=== PATIENT | female | born 1985 ===

== ENCOUNTER 2024-12-09 14:19 | Outpatient (AMB) | payer OTHER, SELFPAY ==
--- NOTE | 2024-12-09 14:21 | AMB.OBINITIA ---
Vital Signs 12/09/24 14:32 Height 1.63 m Height Method Stated Weight 94.574 kg Weight Measurement Method Standing Scale BMI 35.8 BP 143/85 H Blood Pressure Source Automatic Cuff Blood Pressure Location Left Upper Arm Position Sitting Respiration 16 Pulse 98 Pulse Source Monitor Temp 98.2 F Temp Source Oral Pulse Oximetry (%) 99 Oxygen Delivery Method Room Air Allergies/Home Meds Allergies & Medications Allergies No Known Allergies Allergy (Verified 12/09/24 14:34) Medication Reconciliation ergocalciferol (vitamin D2) 1,250 mcg (50,000 unit) capsule (Vitamin D2) 1,250 mcg PO QWEEK 12/09/24 [History Confirmed 12/09/24] labetalol 100 mg tablet 100 mg PO BID 12/09/24 [History Confirmed 12/09/24] metformin 1,000 mg tablet 1,000 mg PO BID 12/09/24 [History Confirmed 12/09/24] Intake Visit Data Collection New Patient or Established: New Patient not seen in past 3 years at [facility] (considered New) Reason for Visit:: New OB visit Seen by Clinical Staff ONLY (RN/MA): No Wellness Consultant Required: No Do You Feel Safe at Home: Yes Authorities Contacted: N/A PCP or OBGYN visit in last 3 months: Yes Hx Now: Yes Are you currently on any form of Control: No Last menstrual period: 10/14/24 Pain Present Currently: No Pain Scale Used: Mckeon-Ayala/Numerical Pain scale:: 0 Smoking Status Smoking Status: Never smoker Questionnaires Covid-19 Vaccine Questionnaire Has patient been vacinated for Covid-19 Have you been vacinated for Covid-19: Yes PHQ-9 PHQ-2 Over the last 2 weeks, how often have you been bothered by any of the following problems? 1. Little interest or pleasure in doing things: not at all 2. Feeling down, depressed, or hopeless: not at all Total score: 0 PHQ-9 3. Trouble falling or staying asleep, or sleeping too much: Not at all 4. Feeling tired or having little energy: Not at all 5. Poor appetite or overeating: Not at all 6. Feeling bad about yourself - or that you are a failure or have let yourself or your family down: Not at all 7. Trouble concentrating on things, such as reading the newspaper or watching television: Not at all 8. Moving or speaking so slowly that other people could have noticed? - Or the opposite - being so fidgety or restless that you have been moving around a lot more than usual: not at all 9. Thoughts that you would be better off or of hurting yourself in some way: Not at all Total score: 0 If you checked off any problems, how difficult have these problems made it for you to do your work, take care of things at home, or get along with other people?: not difficult at all Source: Developed by Drs. Familia Carreno, Renee Hawley, Ron Sandoval and colleagues, with an educational leslie from [employer]. 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 Tobacco History Smoking Status: Never smoker Alcohol History Alcohol Intake: Never Domestic Abuse History Do You Feel Safe at Home: Yes Past Medical History Past Medical History Have you ever been diagnosed with any of the following: Neurological Problems Seizures: No Guillain-Victor Syndrome: No Dominique's Palsy: No Cardiology Problems Cardiac Arrhythmia: No Coronary Artery Disease: No Atherosclerotic Heart Disease: No Hypercholesterolemia: No Rheumatic Fever: No Hypertension: Yes (Patient was on lisinopril and was switched to labetalol 100 p.o. BID) Respiratory Problems Asthma: No Pulmonary Embolism: No Sleep Apnea: No Tobacco Use: No Stomache/Intestinal Problems Gall Bladder Disease: No Gastrointestinal Bleed: No Diverticulitis: No Irritable Bowel: No Genital/Urinary Problems Renal Disease: No Kidney Stones: No Reproductive Problems Breast Cancer: No Endometriosis: No Fibroids: No Genital Herpes: No Previous Pregnancies: Yes (History of 2 very early miscarriages at about 5 weeks with no D&Cs) Syphilis: No Musculoskeletal Problems Arthritis: No Rheumatoid Arthritis: No Scoliosis: No Fibromyalgia: No Endocrine Problems Diabetes Mellitus Type 2: Yes (Patient is on metformin at 1000 mg p.o. QD. Last HgBA1c was 7.2) Hyperthyroidism: No Hypothyroidism: No Systemic Lupus Erythematosus: No Blood Problems Anemia: No Psychologic Problems Depression: No Anxiety: No Attention Deficit Disorder: No Other Problems Hospitalization: No Autoimmune Disease: No Cosmetic Surgery: No Blood Transfusions: No Surgical History Appendectomy: No Bariatric Surgery: No Breast Surgery: No Cholecystectomy: No Coronary Artery Bypass Graft: No Pacemaker: No Additional Surgical History: Patient has had a infertility workup including HSG semen analysis and lab work in [place] in the past History of Present Illness HPI Narrative Patient is a pleasant 39-year-old -0-2-0 presents with her for a new OB. She states that she has had 2 very early miscarriages in the past at about 5 weeks. Patient never saw heartbeat. She was diagnosed with diabetes 2 years ago she also has high blood pressure. Her primary care switched her from lisinopril to labetalol as soon as her test was positive. Her LMP was 10/14/2024 making her approximately 8 weeks by dates today patient states they have never been able to achieve for long period besides the early miscarriages. They have even had a an infertility workup in the past. Patient was on Ozempic and lost 10 pounds. Today she reached she is reporting no bleeding or cramping. She is very anxious about another miscarriage. OB Initial Visit Menstrual History Menstrual reliability: unknown Flow: normal Menstrual regularity: irregular Monthly: No Age at menarche: 17 On control pills at conception: No Date of positive home test: 11/24/24 Associated symptoms (LMP): Reports nausea OB History : 3 Para: 0 Hx Total # of Abortions (Spontaneous & Elective): 2 (early SABs at 5 weeks) Infection History & Risk Evaluation History of STDs: none HIV risk evaluation: low risk Hepatitis B risk evaluation: low risk Patient or partner has history of Genital Herpes: No Genetic Screening & History Genetic Screening/Teratology Counseling - Includes patient, baby's father, or anyone in either family with: 1. Patient's age 35 years or older as of estimated date of delivery: Yes 2. Thalassemia (Bulgarian, Mohawk, Mediterranean, or Background); MCV less than 80: No 3. Neural Tube Defect (Meningomyelocele, Spina Bifida, or Anencephaly): No 4. Congenital Heart Defect: No 5. Down Syndrome: Yes 6. Benito-Sachs (Ashkenazi Anglican, Cajun, [place]): No 7. Kev Disease (Ashkenazi Anglican): No 8. Familial Dysautonomia (Ashkenazi Anglican): No 9. Sickle Cell Disease or Trait (): No 10. Hemophilia or other blood disorders: No 11. Muscular Dystrophy: No 12. Cystic Fibrosis: No 13. [place]'s Chorea: No 14. Mental Retardation/Autism: Yes 15. Other inherited genetic or chromosomal disorder: No 16. Maternal Metabolic Disorder (EG,TYPE 1 Diabetes, PKU): No 17. Patient or baby's father had a child with defects not listed above: No 18. Recurrent loss or a stillbirth: No 19. Medications (including supplements, vitamins, herbs or otc drugs)/illicit/recreational drugs/alcohol since last menstrual period: Yes Comments/Counseling: Patient and her both desire NIPT testing. They desire referral to a maternal- medicine specialist and a level 2 ultrasound. Infection History 1. Live with someone with TB or exposed to TB: No 2. Rash or viral illness since last menstrual period: No 3. Hepatitis B,C: No Other (see comments) Source: [employer] OB Flowsheet OB Flowsheet Initial Weight: Not Recorded Date <del>?</del> EGA Weight Edema CTX Effacement BP Fundal ht Pres Dilation Effacement Station Visit Note Alb Glu FHR Mov 12/09/24 <del>?</del> 8w 0d 94.574 kg 143/85 110 Review of Systems Constitutional Constitutional: Reports system reviewed and no additional complaints, except as documented Comments: No heavy bleeding no abnormal discharge no pelvic pain. Gastrointestinal Gastrointestinal: Reports nausea Exam General Limitations: no limitations General Appearance: alert, cooperative, well developed, well groomed and anxious Head Head exam: atraumatic, normocephalic and normal inspection Neck Neck exam: Present normal inspection, full ROM and trachea midline Chest Chest inspection: Present normal inspection and symmetric chest wall rise Resp Respiratory exam: Present normal lung sounds bilaterally Card Cardiovascular exam: Present regular rate, normal rhythm and normal heart sounds Abdominal Abdominal exam: Present soft and normal bowel sounds Psych Psychiatric exam: Present normal affect and normal mood Skin Skin exam: Present warm, dry, intact and normal color Results Objective Imaging: Bedside US done +FHTS sent down for official US Assessment & Plan Diagnosis / Problem List (1) Chronic benign essential hypertension in first trimester: Status: Acute Plan: Salt diet. Keep an eye on blood pressure at home. Moderate exercise. Continue labetalol 100 twice daily. Start baby aspirin 81 mg p.o. daily (2) Pre-existing urs-goavuxf-xgrssnsvo diabetes mellitus during in first trimester: Status: Acute Plan: Stay on metformin. Check hemoglobin A1c. Send diabetic gestational counseling now (3) : Status: Acute Qualifiers: Weeks of gestation: less than 8 weeks Qualified Code(s): Z3A.01 - Less than 8 weeks gestation of (4) AMA (advanced maternal age) primigravida 35+: Status: Acute Qualifiers: Trimester: first trimester Qualified Code(s): O09.511 - Supervision of elderly primigravida, first trimester Plan: Order labs, order hemoglobin A1c, sent to [facility] in [place] for counseling on AMA and for level 2 ultrasound. Additional Plan Follow Up: 2 Weeks Office Procedures OB Clinic LOC & Office Proc's Nursing/Assessment Patient Status: Initial/New Patient OB Clinic Nursing Assessment: BP Monitoring, Medication Reconciliation, Update PMH in EMR and Vital Signs OB Clinic Coordination of Care: Consent,records obtained, informed consent, Education Simp Pt/Fam, Lab and Imaging orders and Staff clarify orders New Patient Charge New Patient Point Assignment: [id number] New Patient Point Charge: MECHANICAL SERVICE SPECIALIST Level 5 ([id number]) OB Ultrasound OB Ultrasound Ultrasound technique:: transabdominal Gestational sac assessment: Presence, location, size, shape:: Only transabdominal ultrasound obtained. Due to nonfunctioning transvaginal probe. heart tones seen. Patient sent for official ultrasound stat
[2024-12-09 14:32] VITALS: BP 143/85; PULSE 98; RESP 16; TEMP 36.8; O2SAT 99; BMI 35.8
== END 2024-12-09 15:40 | disposition home or self-care (01) ==
LOC: HODSOBC 14:19
PROVIDERS: Supervising Provider Obstetrics & Gynecology; Visit Provider Obstetrics & Gynecology
DX: O09.521 Supervision of elderly multigravida, first trimester (principal); Z3A.08 8 weeks gestation of pregnancy; O09.891 Supervision of other high risk pregnancies, first trimester; O10.011 Pre-existing essential hypertension complicating pregnancy, first trimester; O24.111 Pre-existing type 2 diabetes mellitus, in pregnancy, first trimester; Z87.59 Personal history of other complications of pregnancy, childbirth and the puerperium; Z79.84 Long term (current) use of oral hypoglycemic drugs; Z79.899 Other long term (current) drug therapy
CPT/HCPCS: 99205; G0463

== ENCOUNTER → 2024-12-09 | Outpatient (CLI) | payer BC, SELFPAY ==
--- NOTE | 2024-12-09 15:51 | XR_ITS ---
Examination: Complete OB ultrasound, less than 14 weeks, transabdominal Date and time of exam: December 09, 2024 1645 hours INDICATIONS: Diagnosis high risk Technique: Obstetrical ultrasound images less than 14 weeks performed via transabdominal imaging Findings: A normal shaped single intrauterine gestation is present in the uterus. CRL 0.3 cm corresponds to 5 week 6 day gestational age Cardiac motion 124 BPM Ultrasonographic survey of visible and placental structures unremarkable. Amniotic fluid volume appears appropriate for this estimated gestational age. Right ovary 3.5 cm arterial flow Left ovary 4.6 cm arterial flow IMPRESSION: Viable intrauterine gestation 5 weeks 6 days.
== END | disposition home or self-care (01) ==
PROVIDERS: PCP Family Medicine; Referring Provider Obstetrics & Gynecology; Visit Provider Obstetrics & Gynecology
DX: O09.91 Supervision of high risk pregnancy, unspecified, first trimester (principal); Z3A.01 Less than 8 weeks gestation of pregnancy
CPT/HCPCS: 76801

== ENCOUNTER → 2024-12-21 | Outpatient (CLI) | payer BC, SELFPAY ==
[2024-12-21 17:37] LABS: Basophils % (Auto) 0 % (0-2.5); Eosinophils # (Auto) 0.1 Thou/mm3 (0.0-0.5); Eosinophils % (Auto) 1 % (0-10); Hematocrit 39.8 % (36.0-46.0); Hemoglobin 13.4 g/dL (12.0-16.0); Immature Granulocytes % (Auto) 0 % (0-0); Immature Granulocytes Auto 0.01 Thou/mm3 (0.00-0.00); Lymphocytes # (Auto) 3.6 Thou/mm3 (1.0-4.8); Lymphocytes % (Auto) 53 % (10-50); Mean Corpuscular HGB Conc 33.7 g/dl (31.0-37.0); Mean Corpuscular Hemoglobin 26.9 pg (25.0-35.0); Mean Corpuscular Volume 80 fL (80-100); Monocytes # (Auto) 0.5 Thou/mm3 (0.0-0.8); Monocytes % (Auto) 7 % (0-12); Neutrophils # (Auto) 2.6 Thou/mm3 (1.8-7.7); Neutrophils % (Auto) 39 % (37-80); Nucleated Red Blood Cell % 0 /100 WBC (0); Platelet Count 351 Thou/mm3 (140-440); RDW Standard Deviation 41.7 fL (36.4-46.3); Red Blood Count 4.98 Miln/mm3 (4.00-5.20); White Blood Count 6.7 Thou/mm3 (3.6-11.0)
[2024-12-21 17:46] LABS: Glucose Estimated Average 154 mg/dL (80-131)
[2024-12-21 18:02] LABS: Hepatitis B Surface Antigen Non Reactive (Non React); Rubella, IgG Antibody Reactive (Immune)
[2024-12-22 04:00] LABS: HIV (1&2) Antibody Rapid Non-Reactive
== END | disposition home or self-care (01) ==
LOC: COPL 16:24
PROVIDERS: PCP Obstetrics & Gynecology; Referring Provider Obstetrics & Gynecology; Visit Provider Obstetrics & Gynecology
DX: Z34.90 Encounter for supervision of normal pregnancy, unspecified, unspecified trimester (principal)
CPT/HCPCS: 36415; 83036; 85025; 86703; 86762; 86850; 86900; 86901; 87340

== ENCOUNTER → 2025-01-02 | Outpatient (CLI) | payer BC, SELFPAY ==
--- NOTE | 2025-01-02 12:30 | XR_ITS ---
Examination: Complete OB ultrasound, less than 14 weeks, transabdominal Date and time of exam: January 02, 2025 1230 hours INDICATIONS: Encounter for supervision of normal , diagnosis advanced maternal age Technique: Obstetrical ultrasound images less than 14 weeks performed via transabdominal imaging Findings: A normal shaped single intrauterine gestation is present in the uterus. CRL 1.9 cm corresponds to 8 weeks 3 days gestational age Cardiac motion 133 BPM Ultrasonographic survey of visible and placental structures unremarkable. Amniotic fluid volume appears appropriate for this estimated gestational age. Right ovary 3.1 cm arterial flow Left ovary 4.0 cm arterial flow 16mm cyst IMPRESSION: Viable intrauterine gestation 8 weeks 3 days.
== END | disposition home or self-care (01) ==
LOC: CDIM 12:12
PROVIDERS: Referring Provider Internal Medicine Infectious Disease; Visit Provider Internal Medicine Infectious Disease
DX: O09.519 Supervision of elderly primigravida, unspecified trimester (principal); Z3A.08 8 weeks gestation of pregnancy
CPT/HCPCS: 76801

== ENCOUNTER 2025-01-10 08:39 | Emergency (ER) | payer BC, SELFPAY ==
[2025-01-10 08:40] VITALS: BMI 35.5
[2025-01-10 08:47] VITALS: BP 152/105; PULSE 104; RESP 18; TEMP 36.8; O2SAT 99; BMI 35.5
--- NOTE | 2025-01-10 08:57 | XR_ITS ---
Examination: Complete OB ultrasound, less than 14 weeks, transabdominal Date and time of exam: January 10, 2025 0956 hours INDICATIONS: Vaginal bleeding and pelvic cramping beginning 3 days ago Technique: Obstetrical ultrasound images less than 14 weeks performed via transabdominal imaging Findings: Uterus 12.8 cm pole 1.8 cm corresponds to 8 weeks 3 days gestational age No movement no cardiac activity Right ovary 3.2 x 5.1 cm arterial flow Left ovary 4.1 x 3.3 cm arterial flow 18 mm follicular cyst IMPRESSION: demise
[2025-01-10 09:53] LABS: Basophils # (Auto) 0.1 Thou/mm3 (0.0-0.2); Basophils % (Auto) 1 % (0-2.5); Eosinophils # (Auto) 0.1 Thou/mm3 (0.0-0.5); Eosinophils % (Auto) 2 % (0-10); Hematocrit 41.5 % (36.0-46.0); Hemoglobin 13.8 g/dL (12.0-16.0); Immature Granulocytes % (Auto) 0 % (0-0); Immature Granulocytes Auto 0.01 Thou/mm3 (0.00-0.00); Lymphocytes # (Auto) 2.7 Thou/mm3 (1.0-4.8); Lymphocytes % (Auto) 32 % (10-50); Mean Corpuscular HGB Conc 33.3 g/dl (31.0-37.0); Mean Corpuscular Hemoglobin 26.9 pg (25.0-35.0); Mean Corpuscular Volume 81 fL (80-100); Monocytes # (Auto) 0.6 Thou/mm3 (0.0-0.8); Monocytes % (Auto) 8 % (0-12); Neutrophils # (Auto) 4.9 Thou/mm3 (1.8-7.7); Neutrophils % (Auto) 58 % (37-80); Nucleated Red Blood Cell % 0 /100 WBC (0); Platelet Count 398 Thou/mm3 (140-440); Red Blood Count 5.13 Miln/mm3 (4.00-5.20); White Blood Count 8.4 Thou/mm3 (3.6-11.0)
[2025-01-10 10:33] LABS: Alanine Aminotransferase 27 U/L (10-49); Albumin, Serum 4.3 gm/dL (3.5-5.0); Albumin/Globulin Ratio 1.7 (1.2-2.2); Alkaline Phosphatase 75 U/L (46-116); Anion Gap 10 (7-16); Aspartate Amino Transferase 24 U/L (0-34); BUN/Creatinine Ratio 9 Ratio (12-20); Beta HCG,Quantitative 9692 mIU/mL (<5.0); Bilirubin,Total 0.3 mg/dL (0.3-1.2); Blood Urea Nitrogen 8 mg/dL (9-23); Calcium 9.3 mg/dL (8.3-10.6); Calcium (Corrected) 9.3 mg/dL (8.5-10.1); Carbon Dioxide 22.4 mMol/L (20.0-31.0); Chloride 102 mMol/L (98-107); Creatinine (Component) 0.9 mg/dL (0.6-1.3); Estimated Creatinine Clearance 92.3 mL/min (>60); Globulin 2.6 gm/dL (2.3-3.5); Glucose 193 mg/dL (74-106); Osmolality,Calculated 271 (275-295); Potassium 4.2 mMol/L (3.4-5.1); Sodium 134 mMol/L (136-145); Total Protein 6.9 gm/dL (5.7-8.2); eGFR > 60 See Note
--- NOTE | 2025-01-10 11:27 | EDNOTE_ITS ---
ED OB Contraction Preg RMI/HPI General Chief complaint: OB/Uterine Contractions Stated complaint: PREG 10WKS, SPOTTING SINCE THURSDAY, MILD CRAMPING Time Seen by Provider: 01/10/25 08:46 Arrival date/time: 01/10/25 08:39 39-year-old female medical history significant hypertension and diabetes presents to the emergency department today for complaints of vaginal bleeding and pelvic pain. Patient reports this is her third patient has had not had a live Limitations: no limitations Related Data Home Medications ?Medication ?Instructions ?Recorded ?Confirmed ergocalciferol (vitamin D2) 1,250 1,250 mcg PO QWEEK 0 12/09/24 12/16/24 mcg (50,000 unit) capsule (Vitamin D2) labetalol 100 mg tablet 100 mg PO BID 12/09/2412/16 metformin 1,000 mg tablet 1,000 mg PO BID 12/09/24 Allergies Allergy/AdvReac Type Severity Reaction Status Date / Time No Known Allergies Allergy Verified 01/10/25 08:42 Review of Systems Review of Systems Systems Reviewed: All systems reviewed, normal except as documented Constitutional Constitutional: Reports system reviewed and no additional complaints, except as documented, Denies fever(s) and Denies headache(s) Eyes Eyes: Reports system reviewed and no additional complaints, except as documented and Denies blurry vision ENT Ears, Nose, Mouth, and Throat: Reports system reviewed and no additional complaints, except as documented, Denies headache(s), Denies nasal congestion and Denies nasal discharge Cardiovascular Cardiovascular: Reports system reviewed and no additional complaints, except as documented, Denies chest pain and Denies dyspnea Respiratory Respiratory: Reports system reviewed and no additional complaints, except as documented, Denies chest congestion, Denies cough and Denies dyspnea Gastrointestinal Gastrointestinal: Reports system reviewed and no additional complaints, except as documented and Denies abdominal pain Genitourinary Genitourinary: Reports system reviewed and no additional complaints, except as documented, Reports abnormal vaginal bleeding and Reports pelvic pain Integumentary/Breasts Skin/Breast: Reports system reviewed and no additional complaints, except as documented and Denies rash Neurologic Neurologic: Reports system reviewed and no additional complaints, except as documented, Reports as per HPI and Denies headache(s) Past Medical History Past Medical History NEUROLOGIC: Negative Cerebrovascular Accident, Transient Ischemic Attacks (TIA), Dementia, Alzheimer's Disease, Parkinson's Disease, Brain Tumor, Meningitis, Seizures, Epilepsy, Multiple Sclerosis, Cerebral Palsy, Amyotrophic Lateral Sclerosis (ALS/Mary Jo Gehrig's), Guillain-[place] Syndrome, Spina Bifida, Paralysis, Peripheral Neuropathy, Dominique's Palsy, Subdural Hematoma, Migraine, Head Trauma, Spinal Cord Injury or Traumatic Brain Injury CARDIAC: Positive Hypertension (Patient was on lisinopril and was switched to labetalol 100 p.o. BID); Negative Myocardial Infarction, Cardiac Arrhythmia, Atrial Fibrillation, Angina, Heart Murmur, Coronary Artery Disease, Atherosclerotic Heart Disease, Peripheral Vascular Disease, Hypercholesterolemia, Aneurysm, Congestive Heart Failure, Congenital Heart Disease, Valvular Heart Disease, Rheumatic Fever, Cardiomyopathy, Edema, Pericarditis, Cellulitis, Deep Vein Thrombosis, Hypotension or Varicose Veins RESPIRATORY: Negative Chronic Obstructive Pulmonary Disease (COPD), Asthma, Pulmonary Embolism, Sleep Apnea or Tobacco Use GASTROINTESTINAL: Negative Liver Cancer, Hepatitis, Cirrhosis, Pancreatic Cancer, Gall Bladder Disease, Gastrointestinal Bleed, Diverticulitis or Irrita ble Bowel GENITOURINARY: Negative Renal Disease or Kidney Stones REPRODUCTIVE: Positive Previous Pregnancies (History of 2 very early miscarriages at about 5 weeks with no D&Cs); Negative Breast Cancer, Endometriosis, Fibroids, Genital Herpes or Syphilis MUSCULOSKELETAL: Negative Arthritis, Rheumatoid Arthritis, Scoliosis or Fibromyalgia ENT: Negative Cataracts, Glaucoma, Blind, Retinal Detachment, Macular Degeneration or Head Trauma ENDOCRINE: Positive Diabetes Mellitus Type 2 (Patient is on metformin at 1000 mg p.o. QD. Last HgBA1c was 7.2); Negative Diabetes Mellitus Type 1, Hypoglycemia, Zaki's Syndrome, [place]'s Disease, Hyperthyroidism, Hypothyroidism, Thyroid Cancer, Parathyroid Disease, Pituitary Disease or Systemic Lupus Erythematosus HEMATOLOGIC: Negative Anemia PSYCHO/SOCIAL: Negative Depression, Anxiety or Attention Deficit Disorder OTHER HISTORY: Negative Hospitalization, Autoimmune Disease, Cosmetic Surgery, Blood Transfusions or Breast Cancer Surgical History SURGICAL: Negative Coronary Artery Bypass Graft, Valve Replacement, Pacemaker, Carotid Endarterectomy, Thyroidectomy or Hysterectomy Social History SMOKING STATUS: Never smoker SECOND HAND EXPOSURE: No ED Exam General Limitations: Present no limitations General appearance: Present alert and in no apparent distress Head Head exam: Present atraumatic, normocephalic and normal inspection Eye Eye exam: Present normal appearance, PERRL and EOMI; Absent conjunctival injection ENT ENT exam: Present normal exam, normal oropharynx and mucous membranes moist Neck Neck exam: Present normal inspection, full ROM and trachea midline Chest Chest inspection: Present normal inspection and symmetric chest wall rise Respiratory Respiratory exam: Present normal lung sounds bilaterally; Absent respiratory distress Cardiovascular Cardiovascular exam: Present regular rate, normal rhythm and normal heart sounds Abdominal Exam Abdominal exam: Present soft and normal bowel sounds; Absent distention, tenderness, guarding, rebound or rigidity Extremities Exam Extremities exam: Present normal inspection and full ROM Back Exam Back exam: Present normal inspection and full ROM Neurological Exam Neurological exam: Present alert, oriented X3 and CN II-XII intact Psychiatric Psychiatric exam: Present normal affect and normal mood Skin Skin exam: Present warm, dry, intact and normal color Course Quality Measures none Orders Category Date Time Status US OB <= 14 weeks fetus Stat Exams 01/10/25 08:57 Completed ABO/RH Type Stat Lab 01/10/25 09:36 Completed Beta HCG,Quantitative Stat Lab 01/10/25 09:36 Completed CBC Stat Lab 01/10/25 09:36 Completed Comprehensive Metabolic Panel Stat Lab 01/10/25 09:36 Completed Vital Signs Vital signs: Vital Signs Temperature 98.3 F 01/10/25 08:47 Pulse Rate 104 H 01/10/25 08:47 Respiratory Rate 18 01/10/25 08:47 Blood Pressure 152/105 H 01/10/25 08:47 Pulse Oximetry (%) 99 01/10/25 08:47 Oxygen Delivery Method Room Air 01/10/25 08:47 o2 sat 99% r/a wnl OB/Uterine Contractions MDM Narrative MDM Narrative:: 39-year-old female medical history significant hypertension and diabetes presents to the emergency department today for complaints of vaginal bleeding and pelvic pain. Patient reports this is her third patient has had not had a live On exam patient well-appearing patient does not appear ill or toxic patient is hemodynamically stable Consultation: I spoke with Dr. Collado who felt patient can follow-up tomorrow with Dr Dee patient's [employer] Patient reports that she would like to follow-up with her [employer] tomorrow As patient hemodynamically stable does not appear ill or toxic patient be discharged home at this time Patient has strict instructions to follow-up with her [employer] tomorrow for worsening symptoms return immediately Patient data External records reviewed:: [facility] previous records Clinical information provided by:: patient Social determinants that could affect healthcare access:: none Patient has the following chronic illnesses:: None How is presenting disease/condition affected by chronic disease/condition?: no chronic disease Evaluation data The following diagnostics were reviewed and interpreted by me:: lab results and radiology exam(s) Lab and/or radiology exams considered but not ordered:: Labs radiology obtain Interpretation Summary: Reviewed by mom Medications / Prescriptions Medications or Prescriptions considered but not ordered:: Given no meds Medication administrations:: Given no meds Consultations Consultation(s) initiated? (list below): Yes Consultation #1 (Physician, Specialty, Details): Dr collado Diagnosis OB Contractions Differential Diagnosis: other (Missed , threatened ) Most likely diagnosis given after review of the tests above:: Missed Admission Indicated Admission indicated?: not indicated Explain why admission is indicated or not indicated:: No criteria Admission Request Was there a request for admission?: No Disposition Plan Disposition Plan: Discharge Discharge Attestation Discharge Attestation: The patient and all family members were given an opportunity to ask questions and understood the discharge instructions. Discharge instructions specifically effects, indications for sooner follow up or return to the emergency department, and the expected course of current diagnosis. Patient condition: Stable Discharge Plan Plan Patient Disposition: HOME (Self Care) Disposition Comment: Stable Prescriptions/Referrals Prescriptions/Med Rec: No Action metformin 1,000 mg tablet 1,000 mg PO BID labetalol 100 mg tablet 100 mg PO BID ergocalciferol (vitamin D2) [Vitamin D2] 1,250 mcg (50,000 unit) capsule 1,250 mcg PO QWEEK Referrals: [facility] (OB Clinic)Lisa MD [Physician] - 01/11/25 Monique Herrera MD [Primary Care Provider] - In 1 week Problem List Clinical Impression: , missed Patient/Caregiver Discharge Instructions Education Materials: ED Missed Miscarriage Additional Instructions: Please follow-up with your [employer] tomorrow for worsening symptoms or concerns return to the ER immediately Print Language: Burmese Stand Alone Forms: Devi Award Info., Work/School Release, Patient Portal Info Letter PA/MARJ Supervising Physician PA/MARJ Supervising Physician: Dr Rm
== END 2025-01-10 11:37 | disposition home or self-care (01) ==
PROVIDERS: Nurse Practitioner Primary Care; Emergency Provider Emergency Medicine; PCP Obstetrics & Gynecology
DX: O02.1 Missed abortion (principal); I10 Essential (primary) hypertension; E11.9 Type 2 diabetes mellitus without complications
CPT/HCPCS: 36415; 76801; 80053; 84702; 85025; 86900; 86901; 99284

== ENCOUNTER 2025-01-11 08:29 | Outpatient (AMB) | payer BC, SELFPAY ==
[2025-01-11 08:34] VITALS: BP 132/87; PULSE 92; RESP 16; TEMP 35.7; O2SAT 98; BMI 35.2
--- NOTE | 2025-01-11 08:34 | AMB.GYNCLNOT ---
Vital Signs 01/11/25 08:34 Height 1.63 m Height Method Stated Weight 93.667 kg Weight Measurement Method Standing Scale BMI 35.2 BP 132/87 H Blood Pressure Source Automatic Cuff Blood Pressure Location Left Upper Arm Position Sitting Respiration 16 Pulse 92 Pulse Source Monitor Temp 96.3 F L Temp Source Oral Pulse Oximetry (%) 98 Oxygen Delivery Method Room Air Allergies/Home Meds Allergies & Medications Allergies No Known Allergies Allergy (Verified 01/11/25 08:35) Medication Reconciliation ergocalciferol (vitamin D2) 1,250 mcg (50,000 unit) capsule (Vitamin D2) 1,250 mcg PO QWEEK 12/09/24 [History Confirmed 01/11/25] labetalol 100 mg tablet 100 mg PO BID 12/09/24 [History Confirmed 01/11/25] metformin 1,000 mg tablet 1,000 mg PO BID 12/09/24 [History Confirmed 01/11/25] Intake Visit Data Collection New Patient or Established: Established Patient (seen at [facility] within 3 years) Reason for Visit:: Follow-up on miscarriage Seen by Clinical Staff ONLY (RN/MA): No [place] Rafting Guide Required: No Do You Feel Safe at Home: Yes Authorities Contacted: N/A PCP or OBGYN visit in last 3 months: Yes Date of Last PCP or OBGYN visit: 01/02/25 Hx Now: No Are you currently on any form of Control: No Pain Present Currently: No Pain Scale Used: Mckeon-Ayala/Numerical Pain scale:: 0 Smoking Status Smoking Status: Never smoker 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 1. Little interest or pleasure in doing things: not at all 2. Feeling down, depressed, or hopeless: not at all Total score: 0 PHQ-9 3. Trouble falling or staying asleep, or sleeping too much: Not at all 4. Feeling tired or having little energy: Not at all 5. Poor appetite or overeating: Not at all 6. Feeling bad about yourself - or that you are a failure or have let yourself or your family down: Not at all 7. Trouble concentrating on things, such as reading the newspaper or watching television: Not at all 8. Moving or speaking so slowly that other people could have noticed? - Or the opposite - being so fidgety or restless that you have been moving around a lot more than usual: not at all 9. Thoughts that you would be better off or of hurting yourself in some way: Not at all Total score: 0 If you checked off any problems, how difficult have these problems made it for you to do your work, take care of things at home, or get along with other people?: not difficult at all Source: Developed by Drs. Familia Carreno, Renee Hawley, Ron Sandoval and colleagues, with an educational leslie from [employer]. 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 Tobacco History Smoking Status: Never smoker Second Hand Smoke Exposure: No Alcohol History Alcohol Intake: Never Substance Use History Substance Use: none Domestic Abuse History Do You Feel Safe at Home: Yes Past Medical History Past Medical History Have you ever been diagnosed with any of the following: Neurological Problems Cerebrovascular Accident (CVA): No Transient Ischemic Attacks (TIA): No Dementia: No Alzheimer's Disease: No Parkinson's Disease: No Brain Tumor: No Meningitis: No Seizures: No Epilepsy: No Multiple Sclerosis: No Cerebral Palsy: No Amyotrophic Lateral Sclerosis (ALS/Mary Jo Gehrig's): No Guillain-Fisk Syndrome: No Spina Bifida: No Paralysis: No Peripheral Neuropathy: No Dominique's Palsy: No Subdural Hematoma: No Migraine: No Head Trauma: No Spinal Cord Injury: No Traumatic Brain Injury: No Cardiology Problems Myocardial Infarction: No Cardiac Arrhythmia: No Atrial Fibrillation: No Angina: No Heart Murmur: No Coronary Artery Disease: No Atherosclerotic Heart Disease: No Peripheral Vascular Disease: No Hypercholesterolemia: No Aneurysm: No Congestive Heart Failure: No Congenital Heart Disease: No Valvular Heart Disease: No Rheumatic Fever: No Cardiomyopathy: No Edema: No Pericarditis: No Cellulitis: No Deep Vein Thrombosis: No Hypertension: Yes (Patient was on lisinopril and was switched to labetalol 100 p.o. BID) Hypotension: No Varicose Veins: No Respiratory Problems Chronic Obstructive Pulmonary Disease (COPD): No Asthma: No Pulmonary Embolism: No Sleep Apnea: No Tobacco Use: No Stomache/Intestinal Problems Liver Cancer: No Hepatitis: No Cirrhosis: No Pancreatic Cancer: No Gall Bladder Disease: No Gastrointestinal Bleed: No Diverticulitis: No Irritable Bowel: No Genital/Urinary Problems Renal Disease: No Kidney Stones: No Reproductive Problems Breast Cancer: No Endometriosis: No Fibroids: No Genital Herpes: No Previous Pregnancies: Yes (History of 2 very early miscarriages at about 5 weeks with no D&Cs) Syphilis: No Musculoskeletal Problems Arthritis: No Rheumatoid Arthritis: No Scoliosis: No Fibromyalgia: No Head,Eye,Nose,Throat Problems Cataracts: No Glaucoma: No Blind: No Retinal Detachment: No Macular Degeneration: No Endocrine Problems Diabetes Mellitus Type 1: No Diabetes Mellitus Type 2: Yes (Patient is on metformin at 1000 mg p.o. QD. Last HgBA1c was 7.2) Hypoglycemia: No Madison's Syndrome: No Pendleton's Disease: No Hyperthyroidism: No Hypothyroidism: No Thyroid Cancer: No Parathyroid Disease: No Pituitary Disease: No Systemic Lupus Erythematosus: No Blood Problems Anemia: No Psychologic Problems Depression: No Anxiety: No Attention Deficit Disorder: No Other Problems Hospitalization: No Cosmetic Surgery: No Blood Transfusions: No Surgical History Angioplasty: No Appendectomy: No Bariatric Surgery: No Breast Surgery: No Cancer Surgery: No Carotid Endarterectomy: No Cholecystectomy: No Colectomy: No Colostomy: No Coronary Artery Bypass Graft: No Valve Replacement: No Herniorrhaphy: No Total Hip Replacement: No Total Knee Replacement: No Hysterectomy: No Pacemaker: No Sinus Surgery: No Splenectomy: No TAHBSO-Total Abdominal Hysterectomy: No Thyroidectomy: No Ureter Stent: No History of Present Illness HPI Narrative Patient is a 39-year-old -0-2-0 prick approximately 8 and half weeks presented to the ER yesterday with some bleeding. Patient was found to have a 8-week 3 /7-day miscarriage with no heart tones noted she presents today for follow-up with her . She is bleeding a little bit but it is not heavy. Patient and her both desire suction dilation and curettage. Review of Systems Review of Systems Narrative Review of Systems: Patient has minor cramping and minor bleeding. She has never made it this far in . Patient would like to schedule a suction dilation and curettage. Exam Narrative Physical exam: Remainder of physical exam deferred as this is a counseling visit General Limitations: no limitations General Appearance: alert, cooperative and well groomed Results Objective Imaging: Report from 01/10/2025 reviewed. Intrauterine 8 weeks 3 days with no cardiac activity noted. Blood type is Rh+. Assessment & Plan Diagnosis / Problem List (1) , missed: Status: Acute Plan: Patient desires suction dilation and curettage. The risks of the procedure were discussed including the risk of bleeding infection blood transfusion damage to any other organs should any complications occur all questions were answered all consents were signed will authorize for the procedure and perform the procedure 01/13/2025. Additional Plan Follow Up: 2 Weeks Office Procedures OB Clinic LOC & Office Proc's Nursing/Assessment Patient Status: Established Patient OB Clinic Nursing Assessment: BP Monitoring, Medication Reconciliation, Update PMH in EMR and Vital Signs OB Clinic Coordination of Care: Consent,records obtained, informed consent, Education Simp Pt/Fam, Results/Orders obtained and Staff clarify orders Established Patient Charge Established Patient Point Assignment: 80 Established Patient Point Charge: EP Level 3 (80-115)
== END 2025-01-11 09:23 | disposition home or self-care (01) ==
LOC: HODSOBC 08:29
PROVIDERS: PCP Obstetrics & Gynecology; Referring Provider Obstetrics & Gynecology; Supervising Provider Obstetrics & Gynecology; Visit Provider Obstetrics & Gynecology
DX: O02.1 Missed abortion (principal)
CPT/HCPCS: 99213; G0463

== ENCOUNTER 2025-01-13 09:45 | Day surgery (SDC) | payer BC, SELFPAY ==
--- NOTE | 2025-01-12 06:59 | EKG_ITS ---
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
[2025-01-12 07:19] VITALS: BMI 36.7
[2025-01-12 08:33] LABS: Basophils # (Auto) 0.1 Thou/mm3 (0.0-0.2); Basophils % (Auto) 1 % (0-2.5); Eosinophils # (Auto) 0.2 Thou/mm3 (0.0-0.5); Eosinophils % (Auto) 2 % (0-10); Hemoglobin 13.3 g/dL (12.0-16.0); Immature Granulocytes % (Auto) 0 % (0-0); Immature Granulocytes Auto 0.03 Thou/mm3 (0.00-0.00); Lymphocytes # (Auto) 3.2 Thou/mm3 (1.0-4.8); Lymphocytes % (Auto) 33 % (10-50); Mean Corpuscular HGB Conc 33.3 g/dl (31.0-37.0); Mean Corpuscular Hemoglobin 27.1 pg (25.0-35.0); Mean Corpuscular Volume 82 fL (80-100); Monocytes # (Auto) 0.7 Thou/mm3 (0.0-0.8); Monocytes % (Auto) 7 % (0-12); Neutrophils # (Auto) 5.3 Thou/mm3 (1.8-7.7); Neutrophils % (Auto) 56 % (37-80); Nucleated Red Blood Cell % 0 /100 WBC (0); Platelet Count 386 Thou/mm3 (140-440); RDW Standard Deviation 43.8 fL (36.4-46.3); White Blood Count 9.5 Thou/mm3 (3.6-11.0)
[2025-01-12 08:35] LABS: HCG,Qualitative Serum Positive
[2025-01-12 08:43] LABS: Alanine Aminotransferase 27 U/L (10-49); Albumin, Serum 4.2 gm/dL (3.5-5.0); Albumin/Globulin Ratio 1.6 (1.2-2.2); Alkaline Phosphatase 72 U/L (46-116); Anion Gap 9 (7-16); Aspartate Amino Transferase 23 U/L (0-34); BUN/Creatinine Ratio 13 Ratio (12-20); Bilirubin,Total 0.3 mg/dL (0.3-1.2); Blood Urea Nitrogen 10 mg/dL (9-23); Calcium 9.2 mg/dL (8.3-10.6); Calcium (Corrected) 9.2 mg/dL (8.5-10.1); Carbon Dioxide 24.7 mMol/L (20.0-31.0); Chloride 105 mMol/L (98-107); Creatinine (Component) 0.8 mg/dL (0.6-1.3); Estimated Creatinine Clearance 101.9 mL/min (>60); Globulin 2.7 gm/dL (2.3-3.5); Glucose 127 mg/dL (74-106); Osmolality,Calculated 278 (275-295); Potassium 4.2 mMol/L (3.4-5.1); Sodium 139 mMol/L (136-145); Total Protein 6.9 gm/dL (5.7-8.2); eGFR > 60 See Note
[2025-01-13] VITALS (8 sets, daily range): BP systolic 142–170; BP diastolic 89–112; PULSE 82–97; RESP 12–20; TEMP 36.8–37.5; O2SAT 95–99; BMI 36.7
--- NOTE | 2025-01-13 09:50 | PD.GYNHP ---
Documentation for date of: 01/13/25 GAS PUMPING STATION HELPER - HPI History of Present Illness History of present illness: The Patient is a 39-year-old -0-2-0 at approximately 8-3/7 weeks with a missed miscarriage. This is can been confirmed. Patient was given options including watchful waiting or suction D&C and opted for suction dilation curettage. She was having some bleeding the other day when she went to the ER. Blood type is Rh+. Review of Systems Constitutional Constitutional: Reports system reviewed and no additional complaints, except as documented Comments: Some minor cramping and bleeding since being being diagnosed with miscarriage earlier this week in the ER Past Medical History Past Medical History CARDIAC: Positive Hypertension GASTROINTESTINAL: Positive Obesity (Patient was on Ozempic prior to ) REPRODUCTIVE: Positive Previous Pregnancies (Early miscarriage x 2. No living children. No D&Cs.) ENDOCRINE: Positive Diabetes Mellitus Type 2 (On metformin 1000 mg p.o. twice daily) Meds Home Medications and Allergies Home Medications ?Medication ?Instructions ?Recorded ?Confirmed ?Type ergocalciferol (vitamin D2) 1,250 1,250 mcg PO QWEEK 12/09/24 01/12/25 History mcg (50,000 unit) capsule (Vitamin D2) metformin 1,000 mg tablet 1,000 mg PO BID 12/09/24 01/12/25 History vits no.126-ferrous fum 1 tab PO DAILY 01/12/25 01/12/25 History 28 mg iron-folic acid 800 mcg tablet (Classic ) Allergies Allergy/AdvReac Type Severity Reaction Status Date / Time No Known Allergies Allergy Verified 01/12/25 07:24 Exam - GAS PUMPING STATION HELPER Narrative Exam Patient is alert and oriented x 3 in no apparent distress. Cervix was closed thick and high in the office. Constitutional Constitutional: no acute distress Routine Respiratory Exam Respiratory: Present chest non-tender, lungs clear, normal breath sounds and no resp distress Routine Cardiovascular Exam Cardiovascular: Present RRR Routine Abdominal Exam Abdominal: Present soft and normoactive bowel sounds Routine Skin Exam Skin: Present intact and dry Routine Psychiatric Exam Psychiatric: Present normal affect and normal thought process GAS PUMPING STATION HELPER - Results Labs 01/12/25 07:47 01/12/25 07:47 Assessment and Plan Assessment and plan (1) , missed: Status: Acute Assessment and plan: Intrauterine at 8-3/7 weeks for suction dilation and curettage. Patient is consented for the procedure. Blood type is Rh+. Pain meds have been called in. (2) AMA (advanced maternal age) primigravida 35+: Status: Acute (3) Pre-existing nbn-qyamsjv-jhnetqncc diabetes mellitus during in first trimester: Status: Acute (4) Chronic benign essential hypertension in first trimester: Status: Acute Additional Assessment & Plan Additional Plan: Follow-up in the office in 2 weeks. Pelvic rest for 2 weeks. Quality Measures Quality Measures VTE prophylaxis (SCDs to be placed on admission to outpatient surgery) (2) AMA (advanced maternal age) primigravida 35+ Qualifiers: Trimester: first trimester Qualified Code(s): O09.511 - Supervision of elderly primigravida, first trimester
--- NOTE | 2025-01-13 10:34 | SUR.PREOP ---
Patient expressed gratitude for prayer before their procedure.
--- NOTE | 2025-01-13 14:12 | SUR.PHASEI ---
pt received from OR in recovery bay 8. pt obtunded, breathing unlabored on oxymask 8l, oral airway in place. v/s stable. pt dressing peripad scant blood noted. report recieved from Guillermo DEGROOT and Ezequiel GRACIA.
[2025-01-13] MEDS: fentaNYL CIT INJ 50 mCg/ML AMP 2ML IV (14:18)
--- NOTE | 2025-01-13 15:12 | SUR.PHASEII ---
pt was getting dressed, checked peripad moderate amount of bleeding noted with small clots noted. Dr. Dee informed new orders recieved.
--- NOTE | 2025-01-13 15:30 | SUR.PHASEII ---
Dr. Dee at bedside to examine pt. pt cleared to go home.
--- NOTE | 2025-01-13 15:52 | ESOP_ITS ---
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 Missed AB, 8-3/7 weeks 2. Rh+ blood type Pre-Op diagnosis: 1.Missed AB, 8-3/7 weeks 2. Rh+ blood type Post-Op diagnosis: Same Anesthesia type: General Procedure description: Procedure after obtaining informed consent, the patient was brought back to the operating room and general anesthesia administered. She was then prepped and draped in the dorsal lithotomy position using Farhad stirrups in a normal sterile fashion. Patient was given 1 g of Ancef IV. Her bladder was emptied with an in and out catheter. A weighted speculum was inserted to the patient's vagina and the anterior lip of the cervix grasped with a single-tooth tenaculum at the 12 o'clock position. The cervix was then gently dilated using Hegar dilators to a size 8. A size 8 suction curved curette was introduced to the fundus of the uterus and the curette gently rotated to clear the uterus of any products of conception. The suction curette was removed and the patient's endometrium underwent a brisk endometrial curettage using a wide loop endometrial curette. The scrapings were sent down to pathology. The suction curette was introduced one more time and the uterus cleared of any remaining clots and debris. At the end of the procedure, the tenaculum was removed and the tenaculum site noted to be hemostatic after placing silver nitrate on the cervix. The patient was then awakened in stable condition. The patient tolerated the procedure well, sponge, lap ,needle and instrument counts were correct x 2. The patient went to the recovery area awake and in stable condition. Specimen: other (Products of conception) Estimated blood loss (ml): 60 Findings: Anteverted uterus approximately 8 to 9 weeks size moderate amounts of products of conception on suction dilation and curettage Complications: none Surgical staff Operation Date: 01/13/25 12:15 Case Staff EMBOSSOGRAPH OPERATOR: Guillermo Aguilar Diagnosis Discharge Diagnosis (1) , missed: Status: Acute Problem details: Patient did well after D and C. Patient was told to refrain from intercourse, tampons or douching after her surgery for 2 weeks (2) Chronic benign essential hypertension in first trimester: Status: Acute Problem details: Restart lisinopril at home (3) Pre-existing vfj-zsiteuh-nnaqojlje diabetes mellitus during in first trimester: Status: Acute Problem details: Restart metformin at home Problem List Completed Was Problem List Reviewed/Reconciled?: Yes
--- NOTE | 2025-01-13 16:10 | SUR.PHASEII ---
pt awake and alert, breathing unlabored on room air. v/s stable. pt dressing peripad small amount of blood noted. pt able to ambulate to wheelchair with steady gait. d/c instructions given with Facundo in room, all questions answered. pt d/c via wheelchair with all belongings.
== END 2025-01-13 16:10 | disposition home or self-care (01) ==
PROVIDERS: PCP Nurse Practitioner Family; Referring Provider Obstetrics & Gynecology; Visit Provider Obstetrics & Gynecology
PROC: (CPT 58120; principal; 2025-01-13 12:00)
DX: O02.1 Missed abortion (principal); O09.521 Supervision of elderly multigravida, first trimester; O10.911 Unspecified pre-existing hypertension complicating pregnancy, first trimester; O24.111 Pre-existing type 2 diabetes mellitus, in pregnancy, first trimester; Z3A.08 8 weeks gestation of pregnancy; Z01.810 Encounter for preprocedural cardiovascular examination
CPT/HCPCS: 59820; 36415; 80048; 80053; 81001; 81025; 84703; 85025; 86850; 86900; 86901; 93005; A4217; J0131; J0690; J1100; J2405; J2704; J3010; A9270

== ENCOUNTER 2025-01-25 14:47 | Outpatient (AMB) | payer BC, SELFPAY ==
--- NOTE | 2025-01-25 14:58 | GYNCLNT_ITS ---
Vital Signs 01/25/25 15:09 Height 1.63 m Height Method Stated Weight 93.213 kg Weight Measurement Method Standing Scale BMI 35.2 BP 130/85 H Blood Pressure Source Automatic Cuff Blood Pressure Location Left Upper Arm Position Sitting Respiration 16 Pulse 89 Pulse Source Monitor Temp 97.8 F Temp Source Temporal Artery Scan Pulse Oximetry (%) 98 Oxygen Delivery Method Room Air Allergies/Home Meds Allergies & Medications Allergies No Known Allergies Allergy (Verified 01/25/25 15:09) Medication Reconciliation ergocalciferol (vitamin D2) 1,250 mcg (50,000 unit) capsule (Vitamin D2) 1,250 mcg PO QWEEK 12/09/24 [History Confirmed 01/25/25] metformin 1,000 mg tablet 1,000 mg PO BID 12/09/24 [History Confirmed 01/25/25] vits no.126-ferrous fum 28 mg iron-folic acid 800 mcg tablet (Classic ) 1 tab PO DAILY 01/12/25 [History Confirmed 01/25/25] misoprostol 100 mcg tablet (Cytotec) 100 mcg PO BID #10 tabs 01/13/25 [Rx Confirmed 01/25/25] Intake Visit Data Collection New Patient or Established: Established Patient (seen at [facility] within 3 years) Reason for Visit:: Follow up D&C Seen by Clinical Staff ONLY (RN/MA): No Lead Press Operator Required: No Do You Feel Safe at Home: Yes Authorities Contacted: N/A PCP or OBGYN visit in last 3 months: Yes Hx Now: No Are you currently on any form of Control: No Pain Present Currently: No Pain Scale Used: Mckeon-Ayala/Numerical Smoking Status Smoking Status: Never smoker [employer] 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 1. Little interest or pleasure in doing things: not at all PHQ-9 8. Moving or speaking so slowly that other people could have noticed? - Or the o pposite - being so fidgety or restless that you have been moving around a lot more than usual: not at all Source: Developed by Drs. Familia Carreno, Renee Hawley, Ron Sandoval and colleagues, with an educational leslie from [employer]. 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 Tobacco History Smoking Status: Never smoker Second Hand Smoke Exposure: No Alcohol History Alcohol Intake: Never Substance Use History Substance Use: none Domestic Abuse History Do You Feel Safe at Home: Yes Past Medical History Past Medical History Have you ever been diagnosed with any of the following: Neurological Problems Brain Tumor: No Seizures: No Migraine: No Cardiology Problems Hypercholesterolemia: No Hypertension: Yes Respiratory Problems Asthma: No Pulmonary Embolism: No Sleep Apnea: No Tobacco Use: No Stomache/Intestinal Problems Gall Bladder Disease: No Irritable Bowel: No Obesity: Yes (Patient was on Ozempic prior to ) Genital/Urinary Problems Renal Disease: No Kidney Stones: No Reproductive Problems Breast Cancer: No Endometriosis: No Fibroids: No Genital Herpes: No Pelvic Inflammatory Disease: No Polycystic Ovarian Syndrome: No Previous Pregnancies: Yes (Early miscarriage x 2. No living children. No D&Cs.) Syphilis: No Musculoskeletal Problems Arthritis: No Rheumatoid Arthritis: No Scoliosis: No Fibromyalgia: No Head,Eye,Nose,Throat Problems Glaucoma: No Macular Degeneration: No Endocrine Problems Diabetes Mellitus Type 1: No Diabetes Mellitus Type 2: Yes (On metformin 1000 mg p.o. twice daily) Hyperthyroidism: No Hypothyroidism: No Parathyroid Disease: No Systemic Lupus Erythematosus: No Blood Problems Anemia: No Psychologic Problems Depression: No Anxiety: No Attention Deficit Disorder: No Other Problems Hospitalization: No Cosmetic Surgery: No Anesthesia Reactions: No Chicken Pox: Yes Surgical History Appendectomy: No Bariatric Surgery: No Breast Surgery: No Cholecystectomy: No History of Present Illness HPI Narrative The patient is a 39-year-old -0-3-0 status post suction dilation and curettage in the OR 01/13/2025. She had some bleeding afterwards. She is otherwise doing well. She presents with her today. She is back on Ozempic and is trying to lose weight and control her blood sugars. She does not have an accountant helper and would like a referral to one to help control her blood sugars. They want to try again for but they do not want to go to an [facility]. Next will keep her on baby aspirin have her take labetalol keep her blood sugars very tight and give her extra folic acid and progesterone patient is in agreement with this plan. Exam Narrative Physical exam: Pelvic exam deferred. Patient is not bleeding anymore. General General Appearance: alert, in no apparent distress, comfortable, cooperative, healthy appearing and well groomed Results Objective Laboratory: Pathology reviewed with the patient revealing normal chorionic villi. Assessment & Plan Diagnosis / Problem List (1) Pre-existing csu-zzrrnlq-kertszvla diabetes mellitus during in first trimester: Status: Acute Assessment and Plan: Refer to Orin Garcia nurse practitioner in [place] for diabetic management and consults. (2) AMA (advanced maternal age) primigravida 35+: Status: Acute Qualifiers: Trimester: first trimester Qualified Code(s): O09.511 - Supervision of elderly primigravida, first trimester (3) Chronic benign essential hypertension in first trimester: Status: Acute (4) Postop check: Status: Acute Plan: Patient doing well. Okay for intercourse. Condoms for 3 months. No until hemoglobin A1c is 5.8-6.0. Will call in baby aspirin, extra folic acid, progesterone 200 p.o. nightly for next . Office Procedures OB Clinic LOC & Office Proc's Nursing/Assessment Patient Status: Established Patient OB Clinic Nursing Assessment: Medication Reconciliation, Update PMH in EMR and Vital Signs OB Clinic Coordination of Care: Complex Care and Chronic Disease 1-5, Consent,records obtained, informed consent, Education Simp Pt/Fam and Staff clarify orders Established Patient Charge Established Patient Point Assignment: 85 Established Patient Point Charge: EP Level 3 (80-115)
[2025-01-25 15:09] VITALS: BP 130/85; PULSE 89; RESP 16; TEMP 36.6; O2SAT 98; BMI 35.2
== END 2025-01-25 16:17 | disposition home or self-care (01) ==
LOC: HODSOBC 14:47
PROVIDERS: Supervising Provider Obstetrics & Gynecology; Visit Provider Obstetrics & Gynecology
DX: Z09 Encounter for follow-up examination after completed treatment for conditions other than malignant neoplasm (principal)
CPT/HCPCS: 99213; G0463